=== PATIENT | female | born 1985 | race Caucasian/White ===

== ENCOUNTER 2016-08-29 14:07 | Inpatient (IN) | payer MEDICAID ==
[~2016-08-29] VITALS: Ht 157.4 cm; Wt 93.6 kg
--- NOTE | ~2016-08-29 | CON ---
[place], [place] REPORT OF CONSULTATION [id number] UNIT #: [id number] ROOM: 519 DOCTOR: MERARY ROJAS ED.D) BIRTHDATE: [birth year] DATE: 08/29/16 HISTORY OF PRESENT ILLNESS: The patient is a 31-year-old female referred by Dr. Burrows for evaluation following a screening for depression. At the present time, this patient is a [facility] patient at [facility] on the fifth floor. She states she is single and has no children. Her parents are both living, and she has 1 sister. She resides in [place], [place]. She states she does not have a family physician, but does follow up at [facility] in [place], [place] for her bipolar disorder. Her medical history is also pertinent for bipolar disorder, hypertension, asthma, ADHD, and oppositional defiant disorder. She is presently taking an antidepressant, but no other medications for her bipolar disorder. She was to follow up with her psychiatrist at [facility] on Monday08/30/2016, but she says she is in the hospital, she would not be following up until she is discharged. She states that her drug of choice is heroin, although she has used crack. She denies using cannabis or alcohol on a regular basis. She states that she did have several suicide attempts, more than 7 years ago. She adamantly denies any suicidal ideation or plan at this time. She states she did cut her wrist about 7 years ago. Her therapist at [facility] is the therapist by the name of Berkley. She states she is willing to remain here at [facility] to begin treatment for her heroin addiction and then will follow up at [facility] following discharge from the hospital. She states that she does get depressed, but she is not abnormally depressed and states she will do nothing to harm herself and has no ideation or plan for suicide at this time whatsoever. DIAGNOSES: 1. Bipolar 1 - mixed. 2. Heroin addiction. 3. Heroin withdrawal. 4. Crack cocaine abuse. RECOMMENDATIONS: The patient should follow up with [facility] in [facility] when she is discharged from the hospital. Thank you very much for this consult. MERARY ROJAS ED.D) CM:CONSTR:REPORT OF CONSULTATION [id number] 09/05/16 1549 KIM MORENO MIS.R
[2016-08-29] MEDS ORDERED: ADDERALL 20 MG20 MG PO (15:12)
[2016-08-29] MEDS ORDERED: ATIVAN1 MG PO (15:13)
[2016-08-29] MEDS ORDERED: FLUVOXAMINE MA100 MG PO (15:14)
[2016-08-29] MEDS ORDERED: TRAZODONE100 MG PO (15:14)
[2016-08-29] MEDS ORDERED: PROAIR HFA8.5 GM INH (15:15)
[2016-08-29 16:00] VITALS: BP 141/84
[2016-08-29 18:25] LABS: BILIRUBIN NEGATIVE (NEGATIVE); BLOOD 3+ (NEGATIVE); CLARITY CLEAR (CLEAR); COLOR YELLOW (YELLOW); GLUCOSE NEGATIVE (NEGATIVE); KETONE NEGATIVE (NEGATIVE); LEUKO ESTERASE NEGATIVE (NEGATIVE); NITRITE NEGATIVE (NEGATIVE); PROTEIN NEGATIVE (NEGATIVE); UROBILINOGEN 0.2 E.U./dl (0.2-1.0)
[2016-08-29 18:40] LABS: BASO % 0.1 % (0.0-1.0); EOS # 0.2 10*3/uL (0.0-0.4); EOS % 2.6 % (1.0-4.0); HEMATOCRIT 41.5 % (37.0-47.0); HEMOGLOBIN 13.1 g/dl (12.0-16.0); LYMPH # 3.8 10*3/uL (1.3-4.4); LYMPH % 52.6 % (27.0-41.0); MEAN CORPUSCULAR HGB 26.5 pg (27.0-31.0); MEAN CORPUSCULAR HGB CONC 31.6 g/dl (33.0-37.0); MEAN PLATELET VOLUME 9.4 fl (9.6-12.3); MONO # 0.5 10*3/uL (0.1-1.0); MONO % 6.5 % (3.0-9.0); NEUT # 2.8 10*3/uL (2.3-7.9); NEUT % 38.1 % (47.0-73.0); PLATELET COUNT AUTOMATED 222 10*3/uL (130-400); RED BLOOD COUNT 4.94 10*6/uL (4.10-5.10); RED CELL DISTRI WIDTH 13.5 % (0-14.5); WHITE BLOOD COUNT 7.2 10*3/uL (4.8-10.8)
[2016-08-29 18:49] LABS: URINE AMPHETAMINES < 1000 (1000ng/ml); URINE BARBITURATES < 200 (200ng/ml); URINE COCAINE > 300 (300ng/ml)
[2016-08-29 18:50] LABS: INTERNATIONAL NORM RATIO 0.9 (2.0-3.5); PROTHROMBIN TIME 9.8 SECONDS (9.0-12.4)
[2016-08-29 18:57] LABS: ALBUMIN 3.3 gm/dl (3.1-4.5); ALKALINE PHOSPHATASE 104 U/L (45-117); BILIRUBIN, TOTAL 0.3 mg/dl (0.2-1.0); BUN 11 mg/dl (7-24); CARBON DIOXIDE 27 mmol/L (21-32); CHLORIDE 108 mmol/L (98-107); EST GLOM FILT AFRICAN AMERICAN > 60 ml/min; GLUCOSE 100 mg/dL (65-99); SGOT/AST 19 IU/L (3-35); SGPT/ALT 48 U/L (12-78); SODIUM 141 mmol/L (136-145); TOTAL PROTEIN 7.3 gm/dL (6.4-8.2)
[2016-08-29 19:19] LABS: URINE REFLEX COMMENT YES (NO); WBC 0-2 wbc/hpf (0-5)
[2016-08-29 20:00] VITALS: BP 144/80
[2016-08-30] VITALS: BP 133/75
[2016-08-30 04:00] VITALS: BP 127/63
[2016-08-30 08:00] VITALS: BP 131/73
[2016-08-30 15:51] VITALS: BP 139/81
[2016-08-30 20:41] VITALS: BP 151/79
[2016-08-31 02:00] VITALS: BP 139/71
[2016-08-31 08:00] VITALS: BP 121/57
[2016-08-31 16:00] VITALS: BP 144/77
[2016-08-31 21:30] VITALS: BP 150/73
[2016-09-01 00:03] VITALS: BP 150/80
[2016-09-01 07:05] LABS: BASO % 0.5 % (0.0-1.0); EOS # 0.2 10*3/uL (0.0-0.4); EOS % 2.8 % (1.0-4.0); HEMATOCRIT 43.5 % (37.0-47.0); HEMOGLOBIN 14.1 g/dl (12.0-16.0); LYMPH # 4.6 10*3/uL (1.3-4.4); LYMPH % 53.1 % (27.0-41.0); MEAN CELL VOLUME 81.5 fl (81.0-99.0); MEAN CORPUSCULAR HGB 26.4 pg (27.0-31.0); MEAN CORPUSCULAR HGB CONC 32.4 g/dl (33.0-37.0); MEAN PLATELET VOLUME 9.6 fl (9.6-12.3); MONO # 0.5 10*3/uL (0.1-1.0); MONO % 5.8 % (3.0-9.0); NEUT # 3.3 10*3/uL (2.3-7.9); NEUT % 37.6 % (47.0-73.0); PLATELET COUNT AUTOMATED 236 10*3/uL (130-400); RED BLOOD COUNT 5.34 10*6/uL (4.10-5.10); RED CELL DISTRI WIDTH 13.5 % (0-14.5); WHITE BLOOD COUNT 8.7 10*3/uL (4.8-10.8)
[2016-09-01 07:31] LABS: EST GLOM FILT AFRICAN AMERICAN > 60 ml/min
[2016-09-01 07:58] VITALS: BP 148/79
[2016-09-01] MEDS ORDERED: CARBIDOPA/LEVOD1 TA1 PO (10:27)
[2016-09-01] MEDS ORDERED: ZOFRAN 4 MG ED2 TAB PO (10:27)
== END 2016-09-01 12:00 | disposition home or self-care (01) | DRG 897 ==
LOC: 5E 14:07
PROVIDERS: Internal Medicine
DX: F11.23 Opioid dependence with withdrawal (principal); E44.0 Moderate protein-calorie malnutrition; E66.9 Obesity, unspecified; F32.9 Major depressive disorder, single episode, unspecified; F41.9 Anxiety disorder, unspecified; Z68.37 Body mass index [BMI] 37.0-37.9, adult; F14.10 Cocaine abuse, uncomplicated